=== PATIENT | female | born 1985 ===

== ENCOUNTER 2025-03-01 05:00 | Emergency (ER) | payer MEDICAID, OTHER ==
[~2025-03-01] VITALS: Ht 172.7 cm; Wt 81.8 kg
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
[2025-03-01] MEDS: HYDROcodone-ACET 5/325MG TAB PO ONE (09:22)
[2025-03-01 09:30] VITALS: PULSE 74; RESP 18; O2SAT 97
[2025-03-01] MEDS ORDERED: HYDR-4902 PO (10:42)
[2025-03-01 11:00] VITALS: BP 117/76; PULSE 64; RESP 16; O2SAT 100
== END 2025-03-01 12:02 | disposition home or self-care (01) ==
LOC: ER 05:00 → EDBD 05:00 → EEVIPCON 05:00 → ER 12:02
DX: S09.93XA Unspecified injury of face, initial encounter (principal); Z79.899 Other long term (current) drug therapy; Z88.8 Allergy status to other drugs, medicaments and biological substances; Y04.8XXA Assault by other bodily force, initial encounter; Y93.89 Activity, other specified; Y92.89 Other specified places as the place of occurrence of the external cause; Y99.8 Other external cause status
CPT/HCPCS: 70450; 70486